=== PATIENT | female | born 1995 | race Caucasian/White ===

== ENCOUNTER → 2017-06-02 | Outpatient (CLI) | payer BC, MEDICAID | END | disposition home or self-care (01) | LOC: GMA 14:28 | PROVIDERS: ATTEND Physician Assistant | DX: F41.1 Generalized anxiety disorder (principal) ==

== ENCOUNTER → 2018-12-22 | Outpatient (CLI) | payer BC ==
--- NOTE | 2018-12-23 17:50 | US ---
EXAM DESCRIPTION: OB ,Early (0-14wks): Ultrasound. CLINICAL HISTORY: 23 years Female healthcare. First trimester. Gestational age. 2, para 1. By LMP, EGA is 16 weeks and 6 days with JOSE L 14 Jul 2019. COMPARISON: None. TECHNIQUE: Transpelvic scanning through the urine filled bladder: Grayscale and Doppler modes. FINDINGS: Uterus: 11.3 x 5.0 x 6.4 Gestational sac: Well-defined and oval shape. AFV: Subjectively normal. pole: Mean length is 4.4 cm, corresponding to EGA 11 weeks and 1 day. Yolk sac: 4.8 mm, normal morphology. heart tones: 154 bpm. Subchorionic hemorrhage: 2.0 x 1.2 x 0.6 cm posterior location left of midline. Cul-de-sac: No fluid. Comments: JOSE L by crown-rump length is 12 Jul 2019. Right ovary 2.8 x 2.0 x 2.2 cm. Estimated volume. Normal waveform and color Doppler vascularity. 1.5 x 1.1 x 1.0 cm simple follicle.. No adnexal mass or free fluid. Left ovary not seen in the left adnexa which contains bowel and shadowing intestinal gas No dominant cyst. No adnexal mass or free fluid. IMPRESSION: 1. Single living intrauterine gestation. By crown-rump length mean measurement of 4.4 cm, EGA is 11 weeks 1 day with JOSE L 12 Jul 2019. This is 2 days younger than the EGA by menstrual dates. Normal appearance of yolk sac. Posterior 2.0 cm subchorionic hemorrhage. No fluid in the cul-de-sac. 2. Normal size of the right ovary with 1.5 cm follicle versus involuting corpus luteum cyst. Left ovary not seen in the left adnexa. No adnexal fluid or mass. Electronically signed by: Humberto Maldonado MD 12/23/2018 5:49 PM CDT
== END ==
LOC: US 13:43
PROVIDERS: ATTEND Family Medicine
DX: Z34.81 Encounter for supervision of other normal pregnancy, first trimester (principal); Z3A.11 11 weeks gestation of pregnancy

== ENCOUNTER → 2019-03-01 | Outpatient (CLI) | payer BC ==
--- NOTE | 2019-03-03 08:26 | US ---
EXAM DESCRIPTION: OB Level 2 /Maternal: Ultrasound. CLINICAL HISTORY: 23 years Female Gestational size and dates correlation. Second trimester by medical history. anatomic survey. unknown. By medical history , EGA today is 20 weeks, 5 days, with JOSE L of 14 Jul 2019. COMPARISON: First trimester ultrasound OB ultrasound 22 December 2018. EGA today is 21 weeks 0 days. JOSE L is 12 Jul 2019. TECHNIQUE: Trans-pelvic scanning through the urine-filled bladder; doty-scale, color Doppler, and M-mode sonography. FINDINGS: Single, intrauterine gestation, cephalic position. Amniotic fluid volume and YIMI: Subjectively normal, and no YIMI measurement. Maternal cervix internal os visualized. Placenta anterior with no evidence of previa or abruptio. heart rate by M-mode sonography 150 beats/min. limb activity observed. structural survey: Situs solitus. The following structures were visualized and grossly normal - urinary bladder, stomach, and bilateral kidneys; cord insertion fetus, 3-vessel cord; spine longitudinal, 4-chamber heart; lateral ventricles, cerebellum, and cisterna magna. Nose/lips seen profile and en face. Ultrasound parameter measurements for estimating gestational age: BPD 5.2 cm 21/5 (weeks/days). Head circumference 18.6 cm /0. Abdominal circumference 16.1 cm /. Femur length 3.5 cm 22/03. Ultrasound parameter ratios and cephalic index are within the normal range. Mean estimated gestational age is 21 weeks 2 days, corresponding to JOSE L of 10 Jul 2019. Estimated weight based on these measurements is 401+/- 60 g. 14 ounces 68th percentile by medical history. Bilateral adnexa not well seen; ovaries not seen IMPRESSION: 1. Single, living, intrauterine gestation in cephalic presentation. Amniotic fluid volume subjectively normal, and maternal cervix internal os visualized. Placenta anterior with no evidence of previa. Structural survey grossly normal . 2. Estimated gestational age by today's ultrasound examination is 21 weeks 2 days with JOSE L 10 Jul 2019. This is 4 days older than the estimated gestation age by medical history. 2 days older than EGA by first trimester ultrasound.. 3. Estimated weight is 401 g. 14 ounces. 68th Percentile medical history. Electronically signed by: Humberto Maldonado MD 03/03/2019 8:24 AM [employer]
== END ==
LOC: US 13:24
PROVIDERS: ATTEND Family Medicine
DX: Z34.81 Encounter for supervision of other normal pregnancy, first trimester (principal); Z3A.21 21 weeks gestation of pregnancy